=== PATIENT | female | born 1960 | race Caucasian/White ===

== ENCOUNTER 2020-07-10 07:52 | Outpatient (REF) | payer OTHER, SELFPAY ==
--- NOTE | 2020-07-10 07:57 | MM_ITS ---
EXAMINATION: MM SCREENING DIGITAL BREAST TOMOSYNTHESIS, BILATERAL CLINICAL INFORMATION: Screening. The lifetime risk of breast cancer based on the Tyrer-Cuzick Model is 12.6%. COMPARISON: Mammography: None at this time. Two attempts have been made to obtain previous outside studies. If and when old studies are obtained an addendum will be made to the report. TECHNIQUE: Digital breast tomosynthesis is performed in both the craniocaudal and mediolateral oblique views along with computer-aided detection (CAD). Synthesized 2D images are generated from the tomosynthesis. FINDINGS: There are scattered areas of fibroglandular density (ACR BI-RADS breast composition Category b). No suspicious left breast findings are identified. In the retroareolar region of the right breast there is a question of a small region of architectural distortion for which spot compression films are recommended. MM/MM tomosynthesis screening BI IMPRESSION: Right retroareolar question architectural distortion. ASSESSMENT: BI-RADS 0: Incomplete - Need Additional Imaging Evaluation RECOMMENDATION: 1. Additional views of the right breast. 2. Targeted ultrasound if warranted after review of the additional views. 3. Radiology department staff will contact the patient for additional imaging. This patient's information was entered into a reminder system with a target due date for their next mammogram.
== END 2020-07-10 07:53 | disposition home or self-care (01) ==
LOC: HO.MAMMO 07:52
PROVIDERS: PCP Family Medicine; Visit Provider Family Medicine
DX: Z12.31 Encounter for screening mammogram for malignant neoplasm of breast (principal)
CPT/HCPCS: 77063; 77067

== ENCOUNTER 2021-07-24 15:00 | Outpatient (REF) | payer OTHER, SELFPAY ==
--- NOTE | ~2021-07-24 | MM_ITS ---
EXAMINATION: MM SCREENING DIGITAL BREAST TOMOSYNTHESIS, BILATERAL CLINICAL INFORMATION: Screening. Asymptomatic. The lifetime risk of breast cancer based on the Tyrer-Cuzick Model is 11%. COMPARISON: Mammography: 07/10/2020; outside exam 04/13/2019 and 11/16/2017 ([facility]) TECHNIQUE: Digital breast tomosynthesis is performed in both the craniocaudal and mediolateral oblique views along with computer-aided detection (CAD). Synthesized 2D images are generated from the tomosynthesis. FINDINGS: There are scattered areas of fibroglandular density (ACR BI-RADS breast composition Category b). There are no significant masses, abnormal calcifications, or other abnormalities. Parenchymal pattern is similar to prior studies. No developing density. No significant changes. MM/MM tomosynthesis screening BI IMPRESSION: No mammographic evidence of malignancy. ASSESSMENT: BI-RADS 1: Negative RECOMMENDATION: Routine annual mammography screening. This patient's information was entered into a reminder system with a target due date for their next mammogram.
== END 2021-07-24 15:01 | disposition home or self-care (01) ==
LOC: HO.MAMMO 15:00
PROVIDERS: Visit Provider Family Medicine
DX: Z12.31 Encounter for screening mammogram for malignant neoplasm of breast (principal)
CPT/HCPCS: 77063; 77067

== ENCOUNTER 2021-09-23 09:41 | Day surgery (SDC) | payer OTHER, SELFPAY ==
--- NOTE | 2021-09-22 10:44 | HO.ANESPROP2 ---
Documented by User: Lulu Ryan NP 09/22/21 10:45 HPI - Anesthesia Eval Consult details Narrative: 61yo F for Upper Endoscopy PMFSH Past Medical History Medical History Allergic rhinitis Griffith's esophagus Depression HTN (hypertension) Surgical History Surgical History History of tonsillectomy and adenoidectomy Hx of arthroscopy of left knee Hx of colonoscopy Hx of esophagogastroduodenoscopy Social History Social History Patient Tobacco Use Status: Never used Tobacco Second Hand Smoke Exposure: No Use of substances other than those prescribed or required for medical reasons: No Are you DNR?: No Advance Directives: No Advance Directives Information Provided: Yes Advance Directives on File: No Meds Allergies Allergy/AdvReac Type Severity Reaction Status Date / Time lisinopril Allergy Unknown Verified 03/13/19 00:00 bee stings Allergy Unknown Uncoded 03/13/19 00:00 enviromental allergies Allergy Unknown Uncoded 03/13/19 00:00 mold Allergy Unknown Uncoded 03/13/19 00:00 jose Allergy Unknown Uncoded 03/13/19 00:00 Home Medications Medication Instructions Recorded Confirmed Last Taken Type benzonatate 200 mg capsule 200 mg PO BID 09/22/21 09/22/21 Unknown History diltiazem HCl 09/22/21 09/22/21 Unknown History fluticasone propionate 110 2 puff INHALATION BID 09/22/21 09/22/21 Unknown History mcg/actuation HFA aerosol inhaler (Flovent HFA) montelukast 10 mg tablet 10 mg PO DAILY 09/22/21 09/22/21 Unknown History omeprazole 20 mg capsule,delayed 20 mg PO DAILY 09/22/21 09/22/21 Unknown History release venlafaxine 37.5 mg 37.5 mg PO DAILY 09/22/21 09/22/21 Unknown History capsule,extended release 24 hr Exam Exam Date and Time: September 22, 2021 1044 Assessment and Plan Assessment Anesthesia Assessment: Chart Reviewed Documented by User: Cierra Drake MD 09/23/21 10:25 [facility] Past Medical History Medical History Allergic rhinitis Griffith's esophagus Depression HTN (hypertension) Functional capacity: independent ambulation Patient : No Family History Family history of problems with anesthesia: No Surgical History Surgical History History of tonsillectomy and adenoidectomy Hx of arthroscopy of left knee Hx of colonoscopy Hx of esophagogastroduodenoscopy History of Problems with Anesthesia: No Social History Social History Patient Tobacco Use Status: Never used Tobacco Second Hand Smoke Exposure: No Use of substances other than those prescribed or required for medical reasons: No Are you DNR?: No Advance Directives: No Advance Directives Information Provided: Yes Advance Directives on File: No Meds Allergies Allergy/AdvReac Type Severity Reaction Status Date / Time lisinopril Allergy Unknown Verified 03/13/19 00:00 bee stings Allergy Unknown Uncoded 03/13/19 00:00 enviromental allergies Allergy Unknown Uncoded 03/13/19 00:00 mold Allergy Unknown Uncoded 03/13/19 00:00 jose Allergy Unknown Uncoded 03/13/19 00:00 Home Medications Medication Instructions Recorded Confirmed Last Taken Type benzonatate 200 mg capsule 200 mg PO BID 09/22/21 09/22/21 Unknown History diltiazem HCl 09/22/21 09/22/21 Unknown History fluticasone propionate 110 2 puff INHALATION BID 09/22/21 09/22/21 Unknown History mcg/actuation HFA aerosol inhaler (Flovent HFA) montelukast 10 mg tablet 10 mg PO DAILY 09/22/21 09/22/21 Unknown History omeprazole 20 mg capsule,delayed 20 mg PO DAILY 01/31/22 01/31/22 Unknown History release venlafaxine 37.5 mg 37.5 mg PO DAILY 09/22/21 09/22/21 Unknown History capsule,extended release 24 hr Exam Airway Mallampati Class: III TM Dist: >3cm Neck ROM: Full Heart: RRR Lungs: CTA Assessment and Plan Final Anesthetic Review Family History of Problems with Anesthesia: No History of Problems with Anesthesia: No ASA Class: II Final Preanesthetic Review: No Changes in Pt Med Stat, Meds/Allgs Chart Reviewed, Consent Obtained/Reviewed and Anes Risks/Benef Reviewed Patient Risk: Low Procedure Risk: Low Anesthetic Plan Anesthetic Plan: MAC: Disposition: Standard PACU
[2021-09-23 09:50] VITALS: BMI 33.6
[2021-09-23 10:04] VITALS: BP 127/69; PULSE 68; RESP 16; TEMP 36.7; O2SAT 96
[2021-09-23] MEDS: Lactated Ringers 1,000 ML 100 ML IVCONT (10:05)
--- NOTE | 2021-09-23 10:10 | MHC.SHP ---
Pre-Procedural Eval Section A Date of Service: 09/23/21 The patient is an INPATIENT: No Changes since office visit: No Cold of Flu in the past 2 weeks, No New Medical Problems, No Changes in Medication and No Patient answered all questions The History & Physical has been completed within 30 days and I have reviewed it.: Yes Section B Chief Complaint: barretts Allergies: Allergies Allergy/AdvReac Type Severity Reaction Status Date / Time lisinopril Allergy Unknown Verified 03/13/19 00:00 bee stings Allergy Unknown Uncoded 03/13/19 00:00 enviromental allergies Allergy Unknown Uncoded 03/13/19 00:00 mold Allergy Unknown Uncoded 03/13/19 00:00 jose Allergy Unknown Uncoded 03/13/19 00:00 Plan I have reviewed the history and physical and performed a pertinent physical examination on my patient. No changes have occurred unless specified.
--- NOTE | 2021-09-23 10:30 | P.BOP_ITS ---
Brief Operative Note Date of Service: 09/23/21 Pre-op diagnosis: Barretts Post-op diagnosis: same Procedure: EGD Surgeon: Tee Lynn Anesthesia: MAC Was an Binder Sorter used for this Procedure?: No Estimated blood loss (mL): 5 Pathology: other (egj ans esophagus 35 cm) Condition: stable Disposition: PACU
[2021-09-23 10:32] VITALS: BP 131/81; PULSE 87; RESP 16; TEMP 36.6; O2SAT 96
[2021-09-23 10:47] VITALS: BP 150/75; PULSE 97; RESP 18; TEMP 36.2; O2SAT 95
--- NOTE | 2021-09-23 10:56 | HO.POSTANES ---
Post Anesthesia Evaluation Post Anesthesia Evaluation Vital Signs: Vital Signs Temp Pulse Resp BP Pulse Ox 09/23/21 10:04 98.0 F 68 16 127/69 96 Anesthesia: Monitored Mental Status: Awake Pain Control: Satisfactory Nausea/Vomiting: None Hydration: Adequate Anesthesia-Related Issues: No Anes. Related Issues
--- NOTE | 2021-09-23 11:06 | OP_ITS ---
SURGEON: Tee Lynn MD INDICATIONS: Griffith's esophagus. PREOPERATIVE DIAGNOSIS: POSTOPERATIVE DIAGNOSIS: PROCEDURE PERFORMED: ESTIMATED BLOOD LOSS: COMPLICATIONS: ANESTHESIA: ASSISTANTS: SPECIMENS: PROCEDURE: Upper endoscopy with biopsy. MEDICATIONS: Monitored anesthesia care. DESCRIPTION OF PROCEDURE: History and physical performed. The risks and benefits of the procedure were explained to the patient. Informed consent was obtained. The patient was placed in the left lateral decubitus position. The Olympus video gastroscope was introduced into the esophagus, stomach, and duodenum. Examination was performed. The scope was removed. She tolerated the procedure well and was taken to recovery in stable condition. FINDINGS: Esophagus: There was 1.5 cm area of Griffith's esophagus just above small hiatal hernia. There were no raised lesions or ulcerated areas. Biopsies were obtained at the EG junction at 35 cm. Stomach: The stomach showed no evidence of masses, ulcers, or polyps. Duodenum: The bulb and second portion were normal. IMPRESSION: Griffith's esophagus. RECOMMENDATION: Follow up the biopsy results. MD GOGO Garcia/MODL / [id number]
== END 2021-09-23 11:22 | disposition home or self-care (01) ==
PROVIDERS: PCP Family Medicine; Visit Provider Internal Medicine Gastroenterology
PROC: 0DJ08ZZ Inspection of Upper Intestinal Tract, Via Natural or Artificial Opening Endoscopic (ICD-10-PCS; CPT 43235; principal; 2021-09-23 10:40)
DX: K22.70 Barrett's esophagus without dysplasia (principal); K44.9 Diaphragmatic hernia without obstruction or gangrene; Z80.0 Family history of malignant neoplasm of digestive organs; I10 Essential (primary) hypertension; F32.9 Major depressive disorder, single episode, unspecified; J30.9 Allergic rhinitis, unspecified; Z79.51 Long term (current) use of inhaled steroids; Z79.899 Other long term (current) drug therapy; Z88.8 Allergy status to other drugs, medicaments and biological substances
CPT/HCPCS: 43239; 88305

== ENCOUNTER 2022-08-05 12:38 | Outpatient (REF) | payer OTHER, SELFPAY ==
--- NOTE | ~2022-08-05 | MM_ITS ---
EXAMINATION: MM SCREENING DIGITAL BREAST TOMOSYNTHESIS, BILATERAL CLINICAL INFORMATION: Screening. Asymptomatic. The lifetime risk of breast cancer based on the Tyrer-Cuzick Model is 10%. COMPARISON: Mammography: 07/24/2021, 07/10/2020, outside mammography 04/13/2019 ([facility]). TECHNIQUE: Digital breast tomosynthesis is performed in both the craniocaudal and mediolateral oblique views along with computer-aided detection (CAD). Synthesized 2D images are generated from the tomosynthesis. FINDINGS: There are scattered areas of fibroglandular density (ACR BI-RADS breast composition Category b). There are no significant masses, abnormal calcifications, or other abnormalities. Parenchymal pattern is similar to prior studies. There is no developing density or architectural abnormality. The axilla and skin contours are unremarkable. No significant changes. MM/MM tomosynthesis screening BI IMPRESSION: No mammographic evidence of malignancy. ASSESSMENT: BI-RADS 1: Negative RECOMMENDATION: Routine annual mammography screening. This patient's information was entered into a reminder system with a target due date for their next mammogram.
== END 2022-08-05 12:39 | disposition home or self-care (01) ==
LOC: HO.MAMMO 12:38
PROVIDERS: PCP Family Medicine; Visit Provider Family Medicine
DX: Z12.31 Encounter for screening mammogram for malignant neoplasm of breast (principal)
CPT/HCPCS: 77063; 77067

== ENCOUNTER 2023-09-14 13:29 | Outpatient (REF) | payer MEDICARE, BC, SELFPAY | END 2023-09-14 13:30 | disposition home or self-care (01) | LOC: HO.MAMMO 13:29 | PROVIDERS: PCP Family Medicine; Visit Provider Family Medicine | DX: Z12.31 Encounter for screening mammogram for malignant neoplasm of breast (principal) | CPT/HCPCS: 77063; 77067 ==

== ENCOUNTER → 2023-09-14 13:45 | Outpatient (BNV) | payer MEDICARE, BC, SELFPAY | PROVIDERS: PCP Family Medicine; Visit Provider Radiology Diagnostic Radiology | DX: Z12.31 Encounter for screening mammogram for malignant neoplasm of breast (principal) | CPT/HCPCS: 77063; 77067 ==

== ENCOUNTER 2024-08-01 08:16 | Day surgery (SDC) | payer MEDICARE, BC, SELFPAY ==
[2024-07-28 12:42] VITALS: BMI 33.3
[2024-08-01 08:25] VITALS: BMI 32.1
[2024-08-01] MEDS: Lactated Ringers 1,000 ML 100 ML IVCONT (08:37)
[2024-08-01 08:44] VITALS: BP 142/70; PULSE 68; RESP 18; TEMP 36.6; O2SAT 96
--- NOTE | 2024-08-01 09:07 | MHC.SHP ---
Pre-Procedural Eval Section A - 24 Hr Update-Section A only Date of Service: 08/01/24 Section B - Complete if H&P > 30 days Chief Complaint: Griffith's esophagus without dysplasia,screening Details of Present Illness: see H&P no changes Relevant Family History (Specify if Yes): No Relevant Social History: None Present Medications: None Medical History: No relevant PMH History of Previous Operations: No relevant previous surgery Allergies: Allergies Allergy/AdvReac Type Severity Reaction Status Date / Time bee pollen [bee stings] Allergy Unknown Unknown Verified 08/01/24 08:28 environmental allergies Allergy Unknown Unknown Verified 08/01/24 08:28 lisinopril Allergy Unknown Unknown Verified 08/01/24 08:28 mold Allergy Unknown Unknown Verified 08/01/24 08:28 nickel Allergy Unknown Unknown Verified 08/01/24 08:28 Review of Systems Sugical H&P ROS: Negative: Constitution, Cardiovascular, Respiratory, Neurological, Psychiatric, Hem-Onc, Allergic/Immunologic, Gastrointestinal, Genitourinary, Musculoskeletal, Integumentary, Endocrine and Eyes/Ears/Nose/Throat Exam Surgical H&P Exam: Normal: HEENT, Normal: Heart, Normal: Lungs, Normal: Extremities, Normal: Abdomen, Normal: Skin and Normal: Neurological Plan I have reviewed the history and physical and performed a pertinent physical examination on my patient. No changes have occurred unless specified. Time Spent With Patient Time: Total time managing care of this patient today ____ minutes.
--- NOTE | 2024-08-01 09:10 | HO.ANESPROP2 ---
Documented by User: Lulu Ryan NP 07/31/24 08:28 HPI - Anesthesia Eval Consult details Narrative: 64yo F for Upper Endoscopy and Colonoscopy PMFSH Past Medical History Medical History Overactive bladder Griffith's esophagus Allergic rhinitis Depression HTN (hypertension) Family History Family history of problems with anesthesia: No Surgical History Surgical History History of tonsillectomy and adenoidectomy Hx of arthroscopy of left knee Hx of colonoscopy Hx of esophagogastroduodenoscopy History of Problems with Anesthesia: No Social History Social History (Updated 07/28/24 @ 12:42 by Norma Huston RN) Are you a primary healthcare risk control consultant to a significant other at home: No Do you presently have visiting nurse or other home services: No Patient Tobacco Use Status: Never used Tobacco Second Hand Smoke Exposure: No Use of substances other than those prescribed or required for medical reasons: No Have you been hit, kicked, punched, or otherwise hurt by someone within the past year? If so, by whom?: No Are you DNR?: No Advance Directives: No Advance Directives Information Provided: Yes Recently lost weight without trying: No Nutrition Risks: No Nutritional Risk Meds Allergies Allergy/AdvReac Type Severity Reaction Status Date / Time bee pollen [bee stings] Allergy Unknown Unknown Verified 08/01/24 08:28 environmental allergies Allergy Unknown Unknown Verified 08/01/24 08:28 lisinopril Allergy Unknown Unknown Verified 08/01/24 08:28 mold Allergy Unknown Unknown Verified 08/01/24 08:28 nickel Allergy Unknown Unknown Verified 08/01/24 08:28 Home Medications ?Medication ?Instructions ?Recorded ?Confirmed ?Last Taken ?Type omeprazole 20 mg capsule,delayed 20 mg PO DAILY 09/22/21 07/28/24 Unknown History release venlafaxine 37.5 mg 37.5 mg PO DAILY 09/22/21 07/28/24 Unknown History capsule,extended release 24 hr diazepam 10 mg tablet 10 mg PO BEDTIME PRN Insomnia 07/28/24 07/28/24 Unknown History diltiazem HCl 120 mg 120 mg PO DAILY 07/28/24 07/28/24 08/01/24 History capsule,extended release 24 hr diltiazem HCl 240 mg 240 mg PO DAILY 07/28/24 07/28/24 08/01/24 History capsule,extended release 24 hr estradiol 0.01% (0.1 mg/gram) 1 g vaginal 2XW 07/28/24 07/28/24 Unknown History vaginal cream gabapentin 600 mg tablet 600 mg PO TID 07/28/24 07/28/24 Unknown History vibegron 75 mg tablet (Gemtesa) 75 mg PO DAILY 07/28/24 07/28/24 Unknown History Exam Height,Weight and Vital Signs: Height 5 ft 1 in Weight 79.832 kg Assessment and Plan Assessment Anesthesia Assessment: Chart Reviewed Final Anesthetic Review Family History of Problems with Anesthesia: No History of Problems with Anesthesia: No Documented by User: Alisha Amaro DO 08/01/24 09:35 [facility] Past Medical History Medical History Overactive bladder Griffith's esophagus Allergic rhinitis Depression HTN (hypertension) Family History Family history of problems with anesthesia: No Surgical History Surgical History History of tonsillectomy and adenoidectomy Hx of arthroscopy of left knee Hx of colonoscopy Hx of esophagogastroduodenoscopy History of Problems with Anesthesia: No Social History Social History (Updated 07/28/24 @ 12:42 by Norma Huston RN) Are you a primary healthcare risk control consultant to a significant other at home: No Do you presently have visiting nurse or other home services: No Patient Tobacco Use Status: Never used Tobacco Second Hand Smoke Exposure: No Use of substances other than those prescribed or required for medical reasons: No Have you been hit, kicked, punched, or otherwise hurt by someone within the past year? If so, by whom?: No Are you DNR?: No Advance Directives: No Advance Directives Information Provided: Yes Recently lost weight without trying: No Nutrition Risks: No Nutritional Risk Meds Allergies Allergy/AdvReac Type Severity Reaction Status Date / Time bee pollen [bee stings] Allergy Unknown Unknown Verified 08/01/24 08:28 environmental allergies Allergy Unknown Unknown Verified 08/01/24 08:28 lisinopril Allergy Unknown Unknown Verified 08/01/24 08:28 mold Allergy Unknown Unknown Verified 08/01/24 08:28 nickel Allergy Unknown Unknown Verified 08/01/24 08:28 Home Medications ?Medication ?Instructions ?Recorded ?Confirmed ?Last Taken ?Type omeprazole 20 mg capsule,delayed 20 mg PO DAILY 09/22/21 07/28/24 Unknown History release venlafaxine 37.5 mg 37.5 mg PO DAILY 09/22/21 07/28/24 Unknown History capsule,extended release 24 hr diazepam 10 mg tablet 10 mg PO BEDTIME PRN Insomnia 07/28/24 07/28/24 Unknown History diltiazem HCl 120 mg 120 mg PO DAILY 07/28/24 07/28/24 08/01/24 History capsule,extended release 24 hr diltiazem HCl 240 mg 240 mg PO DAILY 07/28/24 07/28/24 08/01/24 History capsule,extended release 24 hr estradiol 0.01% (0.1 mg/gram) 1 g vaginal 2XW 07/28/24 07/28/24 Unknown History vaginal cream gabapentin 600 mg tablet 600 mg PO TID 07/28/24 07/28/24 Unknown History vibegron 75 mg tablet (Gemtesa) 75 mg PO DAILY 07/28/24 07/28/24 Unknown History Exam Exam Date and Time: 08/01/24 0910 Height,Weight and Vital Signs: Height 5 ft 1 in Weight 79.832 kg Vital Signs Temperature 97.9 F 08/01/24 08:44 Pulse Rate 68 08/01/24 08:44 Respiratory Rate 18 08/01/24 08:44 Blood Pressure 142/70 H 08/01/24 08:44 Pulse Oximetry 96 08/01/24 08:44 Oxygen Delivery Method Room Air 08/01/24 08:44 Temperature 97.9 F 08/01/24 08:44 Pulse Rate 68 08/01/24 08:44 Respiratory Rate 18 08/01/24 08:44 Blood Pressure 142/70 H 08/01/24 08:44 Pulse Oximetry 96 08/01/24 08:44 Oxygen Delivery Method Room Air 08/01/24 08:44 Airway Mallampati Class: II TM Dist: >3cm Neck ROM: Full Loose/Missing/Broken Teeth: No (patient denies any loose or broken teeth) Heart: S1S2 Lungs: CTAB Other: permanent bridge upper jaw Assessment and Plan Assessment Anesthesia Assessment: Anesthesia Plan Discussed and Chart Reviewed Final Anesthetic Review Family History of Problems with Anesthesia: No History of Problems with Anesthesia: No NPO: Yes ASA Class: II Final Preanesthetic Review: No Changes in Pt Med Stat, Meds/Allgs Chart Reviewed, Consent Obtained/Reviewed and Anes Risks/Benef Reviewed Patient Risk: Low Procedure Risk: Low Anesthetic Plan Anesthetic Plan: MAC: and Agree w/ Assess. and Plan Disposition: Standard PACU
[2024-08-01 09:54] VITALS: BP 123/70; PULSE 80; RESP 16; TEMP 36.4; O2SAT 96
--- NOTE | 2024-08-01 09:58 | PM.OP ---
Brief Operative Note Date of Service: 08/01/24 Pre-op diagnosis: barretts screening Post-op diagnosis: same Procedure: EGD colon Surgeon: Tee Lynn MD Anesthesia: MAC Was an Fire Protection Equipment Technician used for this Procedure?: No Estimated blood loss (mL): 2 Pathology: other Condition: stable Disposition: PACU
--- NOTE | 2024-08-01 10:08 | OP_ITS ---
DATE OF SERVICE: 08/01/2024 SURGEON: Tee Lynn MD INDICATIONS: Colon cancer screening and Griffith's esophagus. PREOPERATIVE DIAGNOSIS: POSTOPERATIVE DIAGNOSIS: PROCEDURE PERFORMED: Upper endoscopy with biopsy, colonoscopy to the terminal ileum with cold snare polypectomy. ESTIMATED BLOOD LOSS: COMPLICATIONS: ANESTHESIA: Monitored anesthesia care. ASSISTANTS: SPECIMENS: DESCRIPTION OF PROCEDURE: A history and physical was performed, the risks and benefits of the procedure were explained to the patient and informed consent was obtained. The patient was placed in the left lateral decubitus position. The Olympus video gastroscope was introduced into the esophagus, stomach, and duodenum. Examination was performed. The scope was removed. She was repositioned for colonoscopy. A digital rectal exam was performed and was found to be normal. The Olympus pediatric video colonoscope was introduced into the rectum and advanced to the cecum. The cecum was identified by transillumination, palpation, and identification of ileocecal valve. Examination was performed. The scope was removed. She tolerated both procedures well and was returned to recovery area in stable condition. FINDINGS: Upper endoscopy, esophagus there was a 1.5 cm area of Griffith's esophagus with no raised lesions or ulcerated areas. Biopsies were obtained at the EG junction and at 34 cm. Stomach, the stomach was normal. Duodenum, the bulb and 2nd portion were normal. Colonoscopy: The terminal ileum was examined and appeared normal. In the cecum was a 6 mm polyp, which was removed with a cold snare and recovered via suction. No other polyps were identified. The quality of the prep was good. Retroflexed examination showed small internal hemorrhoids. There was mild sigmoid diverticulosis. IMPRESSION: 1. Griffith's esophagus. 2. Colon polyp. RECOMMENDATIONS: Follow up with the biopsy results. MD GOGO Garcia/ANAHI / [id number]
[2024-08-01 10:09] VITALS: BP 126/67; PULSE 72; RESP 16; TEMP 36.4; O2SAT 98
== END 2024-08-01 11:08 | disposition home or self-care (01) ==
PROVIDERS: PCP Family Medicine; Visit Provider Internal Medicine Gastroenterology
PROC: (CPT 45385; principal; 2024-08-01 10:00)
DX: Z12.11 Encounter for screening for malignant neoplasm of colon (principal); Z80.0 Family history of malignant neoplasm of digestive organs; D12.0 Benign neoplasm of cecum; K57.30 Diverticulosis of large intestine without perforation or abscess without bleeding; K64.8 Other hemorrhoids; K22.70 Barrett's esophagus without dysplasia; I10 Essential (primary) hypertension; J30.9 Allergic rhinitis, unspecified; Z98.890 Other specified postprocedural states; N32.81 Overactive bladder; F32.A Depression, unspecified; Z91.81 History of falling; Z87.828 Personal history of other (healed) physical injury and trauma; Z79.899 Other long term (current) drug therapy; Z88.8 Allergy status to other drugs, medicaments and biological substances
CPT/HCPCS: 45385; 43239; 88305; 88313; J2003; J2704

== ENCOUNTER 2024-10-05 12:13 | Outpatient (REF) | payer MEDICARE, BC, SELFPAY ==
--- OUTSIDE RECORDS SUMMARY | 2024-10-05 12:28 | XMS_ITS | Encounter Summary ---
Author Organization [facility] [place] [address] Care Team Providers Care Ice Cream Man Name Role Phone Leora Schrader MD Primary Care Provider [phone] Encounter Details Date Type Department Care Team (Late st Contact Info) Description 09/15/2024 Telephone Obstetrics [place] [phone] Te Stevens LPN Social History Tobacco Use Types Packs/Day Years Used Date Smoking Tobacco: Never Smokeless Tobacco: Never Alcohol Use Standard Drinks/Week Comments Yes 14 (1 standard drink = 0.6 oz pu re alcohol) Sex and Gender Information Value Date Recorded Sex Assigned at Female 05/23/2024 9:41 AM EDT Gender Identity Female 05/23/2024 9:41 AM EDT Sexual Orientation Lesbian or Prathre 05/23/2024 9: 41 AM EDT documented as of this encounter Miscellaneous Notes * Telephone Encounter - Te Stevens LPN - 09/15/2024 4:10 PM EST TELEPHONE NOTE Caller: TE STEVENS LPN Reason for call: patient to be contacted regarding bladder instillation at urologist. How is her pain? Does she want sooner appt to discuss botox? Assessment: Pt just restarted bladder instillations yesterday because of increased bladder pain. She would like to get further instillations here if possible. Would prefer a telehealth appt to further discuss bladder/botox procedure. Plan: Message sent to secretaries to reach out to patient to schedule telehealth appt. Message sentto Dr. Edward documented in this encounter Plan of Treatment Upcoming Encounters Date Type Department Care Team (Late st Contact Info) Description 10/12/2024 2:00 PM EST Clinical Support Obstetrics [place] [phone] 11/06/2024 10:15 AM EDT Office Visit Obstetrics [place] [phone] Mindy Edward MD [facility] [place] [address] documented as of this encounter Visit Diagnoses Not on filedocumented in this encounter Care Teams Ice Cream Man Relationship Specialty Start Date End Date Leora Schrader MD [address] [place] [address] PCP - General Family Medicine 04/29/23 documented as of this encounter
--- OUTSIDE RECORDS SUMMARY | 2024-10-05 12:28 | XMS_ITS ---
Author Organization [facility] Address [address] [place] [phone] Care Team Providers Care Banking Analyst Name Role Phone Leora Schrader Primary Care Provider Unavailab Tee Gallardo Jr Unavailable REASON FOR VISIT pathology Encounters Encounter Location Date Provider Diagnosis [facility] [address] [place] [phone] 08/08/2024 Tee Lynn Jr PLAN OF TREATMENT No Information
--- OUTSIDE RECORDS SUMMARY | 2024-10-05 12:28 | XMS_ITS ---
Author Organization [facility] Address [address] [place] [address] Care Team Providers Care Ladle Car Operator Name Role Phone Leora Schrader Primary Care Provider Unavailab Tee Gallardo Jr Unavailable [phone] REASON FOR VISIT huertas'e,screening Encounters Encounter Location Date Provider Diagnosis [facility] Outpatient [address] [place] [id number] 08/29/2024 Tee Lynn Jr PLAN OF TREATMENT No Information
--- OUTSIDE RECORDS SUMMARY | 2024-10-05 12:28 | XMS_ITS ---
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
--- OUTSIDE RECORDS SUMMARY | 2024-10-05 12:28 | XMS_ITS | Clinical Summary ---
Author Organization [facility] Address [facility] [place] [address] Care Team Providers Care Criminal Justice Social Worker Name Role Phone Leora Schrader MD Primary Care Provider [phone] Allergies Active Allergy Reactions Criticality Noted Date Comments Ciprofloxacin 05/17/2021 Lisinopril 04/22/2018 Other Reaction(s): Cough Mold 07/28/2023 Other Reaction(s): congestion Mold Extracts 04/22/2018 Nickel 04/22/2018 Other Reaction(s): rash/swelling Unclassified Drug 04/22/2018 Venom-honey bee Medications Medication Sig Dispensed Refills Start Date End Date Status estradioL (ESTRACE) 0.01 % (0.1 mg/gram) Cream Place 2 g vaginally twice a week. 02/12/2023 Active albuteroL 90 mcg/actuation HFA Aerosol Inhaler Inhale 2 puffs into the lungs every 4 hours as needed. 11/07/2020 Active fluticasone propionate (Flovent HFA) 110 mcg/actuation HFA Aerosol Inhaler as needed. 08/05/2020 Active losartan (Cozaar) 50 mg tablet Take 100 mg by mouth Daily @ 0600. Active Multivitamin Liquid Take 5 mLs by mouth Daily. Active omeprazole (PriLOSEC) [address] capsule TAKE 1 CAPSULE BY MOUTH EVERY DAY for 90 11/07/2020 Active venlafaxine XR (Effexor-XR) 75 mg ER 24 hr capsule Take 75 mg by mouth Daily. 06/13/2020 Active dilTIAZem CD (Cardizem CD) 360 mg CD (ER) 24 hr casule Take 360 mg by mouth daily. Active furosemide (Lasix) 20 mg tablet Take 20 mg by mouth daily. 02/03/2024 Active mirabegron (Myrbetriq) 50 mg ER 24 hr tablet Take 1 tablet by mouth daily. Check blood pressure 1-2 times per week for first 4 weeks of use; stop and call office if blood pressure elevated. 30 tablet 3 03/28/2024 Active gabapentin (Neurontin) 600 mg tablet Take 1 tablet by mouth 3 times daily. 90 tablet 12 06/27/2024 Active Active Problems Problem Noted Date Diagnosed Date IC (interstitial cystitis) 06/22/2024 Disorder of muscle, ligament, and fascia 024 Encounters Date Type Department Care Team Description 10/03/2024 10:00 AM EST TH Visit (TeleHealth) Obstetrics [place] [phone] Mindy Edward MD Overactive bladder; Urge incontinence; Interstitial cystitis; Levator spasm; Urethral pain; Chronic interstitial cystitis; Female genital symptoms 09/15/2024 Telephone Obstetrics [place] [phone] Nafisa Stevens LPN 08/28/2024 9:15 AM EST Office Visit Physical Therapy at [address] [phone] Isadora Cummings, PT Disorder of muscle, ligament, and fascia; IC (interstitial cystitis) 08/21/2024 Travel 08/07/2024 9:15 AM EST Office Visit Physical Therapy at [address] [phone] Isadora Cummings, PT Disorder of muscle, ligament, and fascia; IC (interstitial cystitis) 08/06/2024 Travel 07/21/2024 Telephone Obstetrics [place] [phone] Morteza Araujo LPN 07/19/2024 1:45 PM EST Office Visit Physical Therapy at [address] [phone] Isadora Cummings, PT Disorder of muscle, ligament, and fascia; IC (interstitial cystitis) 07/19/2024 Travel 07/12/2024 3:45 PM EST Office Visit Physical Therapy at [address] [address] Isadora Cummings, PT Disorder of muscle, ligament, and fascia; IC (interstitial cystitis) 07/12/2024 Travel 07/05/2024 9:00 AM EST Office Visit Physical Therapy at [address] [address] Isadora Cummings PT Disorder of muscle, ligament, and fascia; IC (interstitial cystitis) 07/05/2024 Transcribe Orders Lab at [address] [phone] Leora Schrader MD Essential (primary) hypertension from Last 3 Months Social History Tobacco Use Types Packs/Day Years Used Date Smoking Tobacco: Never Smokeless Tobacco: Never Tobacco Cessation:Counseling Given: Not Answered Alcohol Use Standard Drinks/Week Comments Yes 14 (1 standard drink = 0.6 oz pu re alcohol) Sex and Gender Information Value Date Recorded Sex Assigned at Female 05/23/2024 9:41 AM EDT Gender Identity Female 05/23/2024 9:41 AM EDT Sexual Orientation Lesbian or Prather 05/23/2024 9: 41 AM EDT Last Filed Vital Signs Vital Sign Reading Time Taken Comments Blood Pressure 143/74 07/04/2024 3:39 PM EST Pulse 74 07/04/2024 3:39 PM EST Temperature 36.3 ??C (97.4 ??F) 07/04/2024 3:39 PM ES T Respiratory Rate 20 07/28/2023 1:02 PM EST Oxygen Saturation 96% 07/04/2024 3:39 PM EST Inhaled Oxygen Concentration - - Weight 76.2 kg (168 lb) 09/28/2024 4:24 PM EST Height 154.9 cm (5' 1 ) 09/28/2024 4:24 PM EST Body Mass Index 31.74 09/28/2024 4:24 PM EST Plan of Treatment Upcoming Encounters Date Type Department Care Team (Late st Contact Info) Description 10/12/2024 2:00 PM EST Clinical Support Obstetrics [place] [address] 11/06/2024 10:15 AM EDT Office Visit Obstetrics and Gynecology at [facility] [place] [address] Mindy Edward MD [facility] [place] [address] Health Maintenance Due Date Last Done Comments CT Colonography 1958 Colonoscopy 1958 Colorectal Cancer Screening 1958 FIT DNA 1958 FIT 1958 Sigmoidoscopy (10 year) with FIT yearly 1958 Sigmoidoscopy 1958 Hepatitis C Screening 1976 Lipid Screening 1976 Tetanus/Diphtheria/Pertussis Vaccines (1 - Tdap) 1977 HPV test 1988 PAP Smear 1988 Breast Cancer Share Decision Needed 1998 Pneumoccocal Vaccine: 50+ (1 of 1 - PCV) 2008 Zoster vaccine (1 of 2) 2008 Breast Cancer screening 04/18/2012 04/18/20 10, 04/17/2009, 04/03/2008 Advance Directive 2013 Bone Density Scan 2023 Covid-19 Vaccine ( - season) 2024 Influenza (Flu) vaccine (1 o f 1 - Influenza standard series) 04/23/2024 Diabetes Screening (HgbA1C o r Glucose) 03/24/2027 03/24/2024 Procedures Procedure Name Priority Date/Time Associated Diagnosis Comments LAB SCAN 07/26/2024 12:00 AM EST BASIC METABOLIC PANEL Routine 03/24/2024 9:48 AM EDT Essential (primary) hypertension MAMMO SCREENING CAD BILATERAL Routine 04/18/2010 8:30 AM EDT from Last 3 Months or Most Recently Relevant to Health Maintenance Results * Scan Doc: Lab (07/26/2024 12:00 AM EST) Narrative 07/26/2024 12:00 AM EST Ordered by an unspecified provider. Scanning Provider MEDIA MGR SCAN EXT O RDR/RSLT * Basic Metabolic Panel (non-fasting) (03/24/2024 9:48 AM EDT) Glucose 107 65 - 199 mg/dL [facility] Comment:Diabetes: >=200 mg/d L plus symptoms Blood Urea Nitrogen 18 8 - 18 mg/dL [facility] Creatinine 0.95 0.70 - 1.20 mg/dL [facility] Sodium 140 135 - 145 mmol/L [facility] Potassium 4.3 3.5 - 5.0 mmol/L [facility] Comment: Please note: ??Patients with WBC >100,000 may have falsely elevated Potassium levels. ??For accurate Potassium quantification in these patients send serum separator tube (gold top) for subsequent determinations. ??Contact the Clinical Chemistry Laboratory if there are any questions. Chloride 104 98 - 107 mmol/L [facility] Carbon Dioxide 25 22 - 31 mmol/L [facility] Anion Gap 11 5 - 15 mmol/L [facility] Calcium 9.4 8.5 - 10.5 mg/dL [facility] Est Glomerular Filtration Rate 66 >=60 mL/min/1. 73 m?? [facility] Comment: This patient's estimated GFR was calculated using the 2020 CKD-EPI equation. The estimated GFR can vary from the measured GFR by up to 30% in the absence of rapidly changing kidney function. Assessment of the estimated GFR is not appropriate when creatinine concentrations are rapidly changing. For clinical situations in which a more precise estimate of GFR is necessary, consider alternative methods of GFR estimation such as a 24-hour urine creatinine clearance. Assignment of CKD stage 1-5 for patients with an eGFR near the transition point between stages may be based on clinical assessment of muscle mass and symptoms in addition to eGFR. Blood 03/24/2024 9:48 AM EDT 03/24/2024 3:35 PM EDT Narrative Resulting Agency Comment Spec In Lab Leora Schrader MD CHEMISTRY ORDERABLE S [facility] [place] [address] * Mammo Screening Cad Bilateral (04/18/2010 8:30 AM EDT) Anatomical Region Laterality Modality Breast Bilateral Mammography 04/18/2010 8:30 AM EDT Narrative 04/18/2010 8:30 AM EDT [facility] Historical Result Principal News Library Director: ??MUNDO ??ELVIA ORIGINAL DIRECT DIGITAL SCREENING MAMMOGRAM: 04/18/2010 Comparison: 04/16/2009, 04/03/2008. ?? Interpretation is performed with the benefit of CAD. Breast composition is scattered fibroglandular elements. ?? The examination consists of bilateral CC and MLO views. There are no suspicious clusters of microcalcifications, dominant masses or areas of architectural distortion to suggest malignancy. ?? IMPRESSION: (ACR 1) Negative. ??Suggest annual screening. ??A12. Dictated by: ?? Mundo Gan D.O. Electronically Signed By: MUNDO GAN DO Released By: MUNDO GAN DO Date: ??04/21/2010 15:24 Procedure Note Unknown - 06/28/2020 NL Historical Result Principal News Library Director: MUNDO GAN ORIGINAL DIRECT DIGITAL SCREENING MAMMOGRAM: 04/18/2010 Comparison: 04/16/2009, 04/03/2008. Interpretation is performed with the benefit of CAD. Breast composition is scattered fibroglandular elements. The examination consists of bilateral CC and MLO views. There are no suspicious clusters of microcalcifications, dominant massesor areas of architectural distortion to suggest malignancy. IMPRESSION: (ACR 1) Negative. Suggest annual screening. A12. Dictated by: Mundo Gan D.O. Electronically Signed By: MUNDO GAN DO Released By: MUNDO GAN DO Date: 04/21/2010 15:24 Unknown IMG MAMMO ORDERABLES from Last 3 Months or Most Recently Relevant to Health Maintenance Care Teams Criminal Justice Social Worker Relationship Specialty Start Date End Date Leora Schrader MD [address] [place] [address] PCP - General Family Medicine 04/29/23
--- OUTSIDE RECORDS SUMMARY | 2024-10-05 12:28 | XMS_ITS | Encounter Summary ---
Author Organization [facility] Address [facility] [place] [address] Care Team Providers Care Systems Checkout Mechanic Name Role Phone Leora Schrader MD Primary Care Provider [phone]- [phone] Reason for Referral * Diagnostic Test (Routine) - Authorized Specialty Diagnoses / Procedures Referred By Contac t Referred To Contact Diagnoses Urethral pain Chronic interstitial cystitis Procedures Cystourethroscopy, with injections(s) for chemodenervation of the bladder) Mindy Edward MD [facility] [place] [address] [facility] [place] [address] Referral ID Status Reason Start Date Expiration Date Visits Requested Visits Authorized [id number] Authorized Test Only 10/03/2024 10/03/2025 1 1 Reason for Visit * Reason Comments Follow-up Encounter Details Date Type Department Care Team (Latest Contact Info) Description 10/03/2024 10:00 AM EST TH Visit (TeleHealth) Obstetrics [place] [address] Mindy Edward MD [facility] [place] [address] Overactive bladder; Urge incontinence; Interstitial cystitis; Levator spasm; Urethral pain; Chronic interstitial cystitis; Female genital symptoms Social History Tobacco Use Types Packs/Day Years Used Date Smoking Tobacco: Never Smokeless Tobacco: Never Alcohol Use Standard Drinks/Week Comments Yes 14 (1 standard drink = 0.6 oz pu re alcohol) Sex and Gender Information Value Date Recorded Sex Assigned at Female 05/23/2024 9:41 AM EDT Gender Identity Female 05/23/2024 9:41 AM EDT Sexual Orientation Lesbian or Prather 05/23/2024 9: 41 AM EDT documented as of this encounter Last Filed Vital Signs Vital Sign Reading Time Taken Comments Blood Pressure - - Pulse - - Temperature - - Respiratory Rate - - Oxygen Saturation - - Inhaled Oxygen Concentration - - Weight 76.2 kg (168 lb) 09/28/2024 4:24 PM EST Height 154.9 cm (5' 1 ) 09/28/2024 4:24 PM EST Body Mass Index 31.74 09/28/2024 4:24 PM EST documented in this encounter Progress Notes * Nany Clemente LNA - 10/03/2024 10:00 AM EST ____ Patient not reached _X___Patient reached and the following information was reviewed/obtained per protocol. _X__Confirmed patient name and date of __X_Confirmed tele med appt (Virtual visit) is downloaded and functioning _X__Confirmed location of patient- TeleVisit is taking place in [place]_ [place]__ If not on [facility], working on signing up for my DH Confirmed has completed any pre-visit questionnaires If has not received required previsit questionnaires, send via [facility] _X__Reviewed medications, allergies, pharmacy, pain/depression, education _X__Documented height/weight/LMP Other information or concerns: [phone] RIMA Subramanian * Mindy Edward MD - 10/03/2024 10:00 AM EST Female Pelvic Medicine and Reconstructive Surgery Follow-Up Telephone Encounter Patient Active Problem List Diagnosis Code Disorder of muscle, ligament, and fascia M62.9, M24.20 IC (interstitial cystitis) N30.10 ID/PRIOR EVALUATION: Marlin Dubon is a 64 y.o. year-old with bladder pain syndrome and overactive bladder, last seen 07/04/24. She was previously under the care of [facility] for 3 years, but recently moved to [place] for half-way. She also recently did bladder instillations with Dr. Verma at [facility], but wishes to consolidate her care closer to her new home. She has been doing pelvic floor physical therapy with Isadora Cummings at [place]. Plan from last visit: Overactive bladder / urinary urge incontinence Continue mirabegron 50mg XL daily. Continue to check BP as usual. Mirabegron can raise BP by a few points. as planned (Ezequiel Verma, [facility], [facility]). *Try to follow up with Dr. Verma about next steps, and whether he thinks there is a bladder condition other than OAB that needs different treatment, and please have him send notes. Videos about bladder health In [place]: https://youShareHows.be/TaYuLgpLVLs (18 minutes) https://www.iFollo.com/watch?v=JGXT06DRqW5 (11 min) Urethral pain, possible bladder pain syndrome Continue gabapentin 600mg TID standing x 3 months, to assess improvement in pain. Call when you need a refill. RN to call to request bladder instillation recipe (try to finish last 1-2 doses). If urethral pain is getting worse: Try 'flare treatments' below to see if they reduce urethral pain. 1) Baking soda treatment Mix ?? to 1 teaspoon baking soda with 8 ounces water. Mix and drink all or sip during day Do not drink more than 2 servings per day 2) Azo Standard - over the counter medication Take 1-2 tablets three times per day for bladder pain and burning You can use Azo before or after sex for bladder pain Take 1 tablet one hour after a dose of baking soda and water as a first treatment for an symptom flare There is also a prescription medication called pyridium - if your insurance will cover it, we are happy to prescribe. 3) Prelief (non-prescription calcium tablet - available from some pharmacies & online); can useTums instead Take 1 to 2 tablets with all meals when treating an IC flare Take 1 hour after baking soda and water or Pyridium as a first treatment for a flare Read more at www.prelief.com Please start with these behavioral interventions: -Apply local heat or cold over the bladder or perineum, for up to 20 minutes at a time. (We discussed the importance of avoiding direct application of ice, and to use caution when using heat, including avoiding possibility of falling asleep while using a heating pad due to risk of cote and of long-term skin changes.) -Avoid dietary triggers, such as artificial sweeteners, caffeine, alcohol, tobacco, carbonation, and acidic & spicy foods & drinks (see attached list of items to avoid). -Be attentive to your voiding patterns, to adjust drinking accordingly. Some patients find that having their urine too concentrated causes symptoms, and increase their water intake to maintain more dilute urine. Other patients have symptoms with bladder distention, and slightly restrict their fluidintake to achieve more comfort, with the goal of drinking enough to maintain their urine a light yellow color. -Try flare treatments, listed below. -Try pelvic floor physical therapy. High tone pelvic floor muscle dysfunction Resume pelvic floor physical therapy - referral placed to [facility], Isadora Cummings (call if not covered by your insurance) Do relaxation exercises you know, and try the one below. AC to call [facility] to get biopsy results. Call to discuss possible bladder BOTOX. Return to clinic 3-4 months. SUBJECTIVE: Ms. Dubon is overall doing ok, with ongoing symptoms. Currently, urgency and frequency are ok; she needs to void at least every 45-60 min, and needs to void 5 times overnight. She had 6 instillations, and about 8 weeks later, she felt like she needed them again due to urgency and pain with voiding. She is having ongoing instillations in [place] every 2 weeks, which is 2 hours away. She is open to continuing bladder instillations here, acknowledging that the recipe might be somewhat different. She did complete the Gemtesa and started mirabegron 50mg XL daily. It seems to help somewhat, especially if taken at night, with morning symptoms. She wonders about sacral neuromodulation to address the urinary urgency. OBJECTIVE: Not available for this telehealth visit. ASSESSMENT: Marlin Dubon is a 64 y.o. year old woman with: Overactive bladder / urinary urge incontinence Possible chronic benign cystitis, prior benign bladder biopsy PLAN: Overactive bladder / urinary urge incontinence Continue mirabegron 50mg XL daily. Complete bladder instillations, will start here the week of 10/09. Schedule bladder Onabot/BOTOX for mid-late October (after , before ) Watcher below videos about bladder health https://Touch Payments.be/TaYuLgpLVLs (18 minutes) https://www.youtube.com/watch?v=HYIV01ZNeK9 (11 min) Urethral pain, possible bladder pain syndrome Continue gabapentin 600mg 2-3 times per day standing x 3 months, to assess improvement in pain. Call when you need a refill. If urethral pain is getting worse: Try 'flare treatments' below to see if they reduce urethral pain. 1) Baking soda treatment Mix ?? to 1 teaspoon baking soda with 8 ounces water. Mix and drink all or sip during day Do not drink more than 2 servings per day 2) Azo Standard - over the counter medication Take 1-2 tablets three times per day for bladder pain and burning You can use Azo before or after sex for bladder pain Take 1 tablet one hour after a dose of baking soda and water as a first treatment for an symptom flare There is also a prescription medication called pyridium - if your insurance will cover it, we are happy to prescribe. 3) Prelief (non-prescription calcium tablet - available from some pharmacies & online); can useTums instead Take 1 to 2 tablets with all meals when treating an IC flare Take 1 hour after baking soda and water or Pyridium as a first treatment for a flare Read more at www.prelief.com Please start with these behavioral interventions: Apply local heat or cold over the bladder or perineum, for up to 20 minutes at a time. (We discussed the importance of avoiding direct application of ice, and to use caution when using heat, including avoiding possibility of falling asleep while using a heating pad due to risk of cote and of long-term skin changes.) Avoid dietary triggers, such as artificial sweeteners, caffeine, alcohol, tobacco, carbonation, andacidic & spicy foods & drinks (see attached list of items to avoid). Be attentive to your voiding patterns, to adjust drinking accordingly. Some patients find that having their urine too concentrated causes symptoms, and increase their water intake to maintain more dilute urine. Other patients have symptoms with bladder distention, and slightly restrict their fluid intake to achieve more comfort, with the goal of drinking enough to maintain their urine a light yellow color. Try flare treatments, listed below. Try pelvic floor physical therapy. High tone pelvic floor muscle dysfunction Do relaxation exercises you know as needed. RTC for bladder instillation week of 10/09, and bladder Onabot/BOTOX week of 10/31 or after. Plan provided in writing to the patient. I spent 26 minutes with the patient. Note to patient: The Century Cures Act makes medical notes like this available to patients in the interest of transparency. However, be advised this is a medical document. It is intended as xwht-uz-oans communication. It is written in medical language and may contain abbreviations or verbiage that are unfamiliar. Mindy Edward MD Female Pelvic Medicine and Reconstructive Surgery documented in this encounter Plan of Treatment Upcoming Encounters Date Type Department Care Team (Late st Contact Info) Description 10/12/2024 2:00 PM EST Clinical Support Obstetrics [place] [address] 11/06/2024 10:15 AM EDT Office Visit Obstetrics [place] [address] Mindy Edward MD [facility] [place] [address] Scheduled Orders Name Type Priority Associated Diagnoses Order Schedule Cystourethroscopy, with injections(s) for chemodenervation of the bladder) Procedures Routine Urethral pain Chronic interstitial cystitis Expected: 10/31/2024 (Approximate), Expires: 05/02/2025 POCT Urinalysis w/o Microscopy Point of Care Testing Routine Chronic interstitial cystitis Female genital symptoms Ordered: 10/03/2024 documented as of this encounter Visit Diagnoses Diagnosis Overactive bladder Hypertonicity of bladder Urge incontinence Interstitial cystitis Chronic interstitial cystitis Levator spasm Abnormal involuntary movements Urethral pain Other symptoms involving urinary system Chronic interstitial cystitis Female genital symptoms Unspecified symptom associated with female genital organs documented in this encounter Care Teams Systems Checkout Mechanic Relationship Specialty Start Date End Date Leora Schrader MD [address] [place] [id number] PCP - General Family Medicine 04/29/23 documented as of this encounter
--- OUTSIDE RECORDS SUMMARY | 2024-10-05 12:29 | XMS_ITS | Clinical Summary ---
Author Organization Formerly [facility] Address [address] [place] [address] Care Team Providers Care Cad Developer Name Role Phone Unavailable Primary Care Provider Unavailabl e Social History Tobacco Use Types Packs/Day Years Used Date Smoking Tobacco: Never Assessed Sex and Gender Information Value Date Recorded Sex Assigned at Not on file Gender Identity Not on file Sexual Orientation Not on file Plan of Treatment Health Maintenance Due Date Last Done Comments Hepatitis C Virus Screening 1960 DTaP/Tdap/Td Vaccines (1 - Tdap) 1977 Pneumococcal Vaccines 50+ (1 of 1 - PCV) 2008 Zoster (Shingles) Vaccine (1 of 2) 2008 COVID-19 Vaccine ( - 2023-2 5 season) 2024 RSV Vaccine 60 years and old er and Patients (1 - 1-dose 75+ series) 2033 Hepatitis B Vaccines Aged Out No long er eligible based on patient's age to complete this topic
--- OUTSIDE RECORDS SUMMARY | 2024-10-05 12:29 | XMS_ITS | Encounter Summary ---
Author Organization [facility] Address [address] [place] [address] Care Team Providers Care Cable Dispatcher Name Role Phone Unavailable Primary Care Provider Unavailabl e Encounter Details Date Type Department Care Team (Late st Contact Info) Description 10/19/2022 Erroneous Encounter [facility] [address] [place] [address] Provider, MD Al Social History Tobacco Use Types Packs/Day Years Used Date Smoking Tobacco: Never Assessed Sex and Gender Information Value Date Recorded Sex Assigned at Not on file Gender Identity Not on file Sexual Orientation Not on file documented as of this encounter Plan of Treatment Not on file documented as of this encounter Visit Diagnoses Not on filedocumented in this encounter
--- OUTSIDE RECORDS SUMMARY | 2024-10-05 12:29 | XMS_ITS | Patient Health Record ---
Author Organization [facility] Address [address] [place] [phone] Care Team Providers Care Eligibility Worker Name Role Phone Leora Schrader Primary Care Provider UnavailTee Cain Jr Unavailable ALLERGIES Allergen (clinical drug ingredient) Drug/Non Drug Allergy documented on EMR Reaction Allergy Type Onset Date Status lisinopril Lisinopril Unknown Drug Allergy Activ e nickel,mice,grass,tr ee s (uncoded) Unknown Allergy Active RESULTS Component Value Reference Range Notes MAMMOGRAM DIGITAL BILATERAL SCREEN Reviewed date:06/22/2024 02:20:16 PM Interpretation:Normal Performing Lab: Notes/Report: Normal Pathology Reviewed date:08/08/2024 03:52:13 PM Interpretation: Performing Lab:[facility], [address] [place] [id number] Notes/Report: REASON FOR REFERRAL No Information MEDICATIONS Medication SIG (Take, Route, Frequency, Duration) Notes Start Date End Date Status Estradiol 0.1 MG/GM USE 1 GRAM VAGINALLY 2 TIMES EVERY WEEK Vaginal for 90 Active Omeprazole 20 MG TAKE 1 CAPSULE BY MO [facility] EVERY DAY for 90 days Active Gabapentin 600 MG TAKE 1 TABLET BY QUINTEN TH THREE TIMES DAILY Oral for 90 Active diazePAM 10 MG TAKE 1 TABLET VAGINA LLY DAILY AT BEDTIME NEEDED FOR MODERATE PAIN Oral as directed Active Gemtesa 75 MG TAKE 1 TABLET BY QUINTEN TH DAILY Oral for 30 Active Venlafaxine HCl ER 37.5 MG Oral for 90 Active dilTIAZem HCl ER Coated Beads 360 MG Oral for 30 Active IMMUNIZATIONS Vaccine Route Administration Date Status Comme nts Influenza Unknown 05/09/2019 Administered Influenza Unknown 06/11/2021 Administered Influenza Unknown 04/22/2023 Administered Pneumococcal Unknown 05/23/2023 Administered SOCIAL HISTORY Tobacco Use: Social History Observation Description Date Details (start date - stop date) Never Smoker NA - NA Sex Assigned At : Social History Observation Description Sex Assigned At Unknown Tobacco Use/Smoking Question Answer Notes Patient is a nonsmoker Alcohol Screen Question Answer Notes Did you have a drink contain ing alcohol in the past year? Yes How often did you have a dri nk containing alcohol in the past year? 2 to 3 times a week (3 points) How many drinks did you have on a typical day when you were drinking in the past year? 1 or 2 drinks (0 point) How often did you have 6 or more drinks on one occasion in the past year? 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) Active confirmed 340267642 Problem Colon cancer screening (Z12.11) Active confirmed 466708522 Problem FHx: colon cancer (Z80.0) Active confirmed 961412144 Problem Griffith's esophagus without dysplasia (K22.70) Active confirmed 356008037 Problem Griffith esophagus (K22.70) Active confirmed Griffith esophagus (708864475) VITAL SIGNS Blood pressure diastolic 00 mm Hg 06/22/2024 Height 61 in 06/22/2024 Blood pressure systolic 00 mm Hg 06/22/2024 Weight 176 lbs 06/22/2024 BMI 33.25 kg/m2 06/22/2024 Encounters Encounter Location Date Provider Diagnosis [facility] [address] [place] [id number] 08/29/2024 Tee Lynn Jr [facility] [address] [place] [id number] 08/01/2024 Tee Lynn Jr Colon cancer screening Z12.11 ; Family history of colon cancer Z80.0 ; Colon polyps K63.5 and Griffith''s esophagus without dysplasia K22.70 [facility] [address] [facility] [address] [place] [phone] 06/22/2024 Tee Lynn Jr Griffith''s esophagus without dysplasia K22.70 ; Colon cancer screening Z12.11 and FHx: colon cancer Z80.0 [facility] [address] [place] [address] 12/15/2023 Tee Lynn Jr [facility] [address] [place] [address] 05/09/2024 Tee Lynn Jr [facility] [address] [place] [address] 08/08/2024 Tee Lynn Jr ASSESSMENTS Encounter Date Diagnosis Assessment Notes Treatment Notes Treatment Clinical Notes 08/01/2024 Colon cancer screening (ICD-10 - Z12.11) 08/01/2024 Family history of colon cancer (ICD-10 - Z80.0) 06/22/2024 Colon cancer screening (ICD-10 - Z12.11) 06/22/2024 Griffith''s esophagus without dysplasia (ICD-10 - K22.70) Griffith esophagus material was printed 08/01/2024 Colon polyps (ICD-10 - K63.5) 06/22/2024 FHx: colon cancer (ICD-10 - Z80.0) 08/01/2024 Griffith''s esophagus without dysplasia (ICD-10 - K22.70) PLAN OF TREATMENT Future Test Test Name Order Date COLONOSCOPY 06/21/2019 UPPER GI ENDOSCOPY 09/01/2021 UPPER GI ENDOSCOPY 06/22/2024 COLONOSCOPY 06/22/2024 Insurance Providers Payer Name Payer Address Payer Phone Subscriber Number Group Number Insured Name Patient Relationship to Insured Coverage Start Date Coverage End Date MEDICARE OF [facility] [address] [place] [address] [id number] DubonMarlin myers Self - patient is the insured [employer] [place] [address] [place] [address] [id number] DubonMarlin Self - patient is the insured MEDICAL (GENERAL) HISTORY Medical History History ICD Code hypertension depression fall 05/13, fell down stairs had 16 stapl es in her head. Allergic rhinitis Griffith's esophagus, EGD 09/23/21, no dysp lasia, 3-5 year recall. Family history of colon canc er, colonoscopy 09/22/19 normal, five-year followup overactive bladder [facility] Surgical History Surgery Date(Month/Year) left knee arthroscopy tonsillectomy and adenoidectomy
== END 2024-10-05 12:14 | disposition home or self-care (01) ==
LOC: HO.MAMMO 12:13
PROVIDERS: PCP Family Medicine; Visit Provider Family Medicine
DX: Z12.31 Encounter for screening mammogram for malignant neoplasm of breast (principal)
CPT/HCPCS: 77063; 77067

== ENCOUNTER → 2024-10-05 12:15 | Outpatient (BNV) | payer MEDICARE, BC, SELFPAY | PROVIDERS: PCP Family Medicine; Visit Provider Internal Medicine | DX: Z12.31 Encounter for screening mammogram for malignant neoplasm of breast (principal) | CPT/HCPCS: 77063; 77067 ==